=== PATIENT | female | born 1990 | race African-American/Black ===

== ENCOUNTER 2017-04-24 21:33 | Inpatient (IN) | payer OTHER ==
[~2017-04-24] VITALS: Ht 152.4 cm; Wt 63.5 kg
[~2017-04-24 21:33] MED LIST: ALBUTEROL INHALER
[2017-04-24] MEDS ORDERED: PREN-88 PO (22:04)
[2017-04-24] MEDS ORDERED: LACTATED RINGERS 1,000 ML IV ONE (22:15)
[2017-04-24] MEDS ORDERED: ACETAMINOPHEN 500MG TABLET PO NR (22:15)
[2017-04-24 22:50] LABS: CLARITY URINE TURBID (CLEAR); COLOR URINE DARK YELLOW (YELLOW); GLUCOSE URINE NEGATIVE (NEGATIVE); KETONES URINE NEGATIVE (NEGATIVE); LEUKOCYTE ESTERASE URINE 2+ (NEGATIVE); NITRITE URINE NEGATIVE (NEGATIVE); OCCULT BLOOD URINE 2+ (NEGATIVE); PH URINE 6.5 (4.5-8.0); PROTEIN URINE TRACE (NEGATIVE); SPECIFIC GRAVITY URINE 1.026 (1.005-1.030)
[2017-04-24] MEDS ORDERED: DEXT 5%/LR + PITOCIN 20UNITS/L 1,000 ML IV SCH (22:53)
[2017-04-24] MEDS ORDERED: LACTATED RINGERS 1,000 ML IV SCH (22:53)
[2017-04-24] MEDS ORDERED: METHYLERGONOVINE MALEATE 0.2 MG/ML IM PRN (23:00)
[2017-04-24] MEDS ORDERED: MISOPROSTOL 100MCG TABLET VG SCH (23:00)
[2017-04-24] MEDS ORDERED: CARBOPROST TROMETHAMINE 250 MCG/ML AMPUL IM PRN (23:00)
[2017-04-24] MEDS ORDERED: LIDOCAINE HCL 1% 20ML VIAL (Pyxis) INJ INFIL SCH (23:00)
[2017-04-24] MEDS ORDERED: BUTORPHANOL TARTRATE 2 MG/ML VIAL IV PRN (23:00)
[2017-04-24] MEDS ORDERED: PENICILLIN G POTASSIUM 5 MMU in DEXT 5% WATER 100 ML IV NR (23:00)
[2017-04-24] MEDS ORDERED: NALOXONE HCL 0.4 MG/ML 1ML VIAL IM PRN (23:00)
[2017-04-24 23:10] LABS: *AMPHETAMINES SCREEN URINE NEGATIVE (NEGATIVE); *BARBITURATES SCREEN URINE NEGATIVE (NEGATIVE); *BENZODIAZEPINES SCREEN URINE NEGATIVE (NEGATIVE); CANNABINOID URINE SCREEN NEGATIVE (NEGATIVE); METHADONE URINE SCREEN NEGATIVE (NEGATIVE); OPIATES URINE SCREEN NEGATIVE (NEGATIVE); PHENCYCLIDINE URINE SCREEN NEGATIVE (NEGATIVE)
[2017-04-24 23:50] LABS: *COCAINE SCREEN URINE PRESUMTIVE POSITIVE (NEGATIVE)
[2017-04-24 23:57] LABS: BASOPHILS % 0.4 % (0.0-2.0); EOSINOPHILS % 0.7 % (0.0-5.0); HEMATOCRIT. 39.3 % (36.0-48.0); HEMOGLOBIN. 12.8 g/dL (12.0-16.0); LYMPHOCYTES % 11.7 % (20.0-50.0); MEAN CORPUSCULAR HEMOGLOBIN 26.5 pg (28.0-32.0); MEAN CORPUSCULAR VOLUME 81.4 fL (81.0-99.0); MEAN PLATELET VOLUME 9.5 fl (7.4-10.4); MONOCYTES % 5.1 % (2.0-8.0); NEUTROPHILS % 82.1 % (40.0-76.0); PLATELET 266 x1000/uL (130-400); RED BLOOD CELL COUNT 4.83 mill/uL (4.2-5.4)
[2017-04-25 00:04] LABS: INR 0.9; PARTIAL THROMBOPLASTIN TIME 29.8 sec (23.4-31.0); PROTHROMBIN TIME 9.1 sec (9.4-11.6)
[2017-04-25] MEDS ORDERED: FENTANYL CITRATE/PF 50MCG/ML 2ML VIAL ONE ×3 (00:09→04:54)
[2017-04-25] MEDS ORDERED: BUPIVACAINE HCL/PF 0.25% (2.5MG/ML) 10ML ONE (00:11)
[2017-04-25] MEDS ORDERED: BUPIVACAINE HCL/NS/PF EPIDURAL 100 ML EP ONE (00:11)
[2017-04-25] MEDS ORDERED: DIPHENHYDRAMINE 50MG/ML VIAL IV PRN (01:00)
[2017-04-25] MEDS ORDERED: ONDANSETRON HCL 4MG/2ML VIAL IV PRN (01:00)
[2017-04-25] MEDS ORDERED: BUPIVACAINE HCL/NS/PF EPIDURAL 100 ML EP SCH (01:00)
[2017-04-25] MEDS ORDERED: PENICILLIN G POTASSIUM 2.5 MMU in DEXTROSE 5% WATER 50 ML IV SCH (03:00)
[2017-04-25] MEDS ORDERED: BETAMETHASONE ACET/BETAMET 30 MG/5 ML VIAL IM SCH (03:15)
[2017-04-25] MEDS ORDERED: CEFAZOLIN SODIUM 1000MG/VIAL ONE (04:44)
[2017-04-25] MEDS ORDERED: SODIUM BICARBONATE 4% (2.4MEQ) 5ML VIAL IV ONE (04:44)
[2017-04-25] MEDS ORDERED: OXYTOCIN 10 UNITS/ML 1ML ONE (04:45)
[2017-04-25] MEDS ORDERED: MORPHINE SULFATE/PF 1MG/ML 10ML AMP ONE (04:54)
[2017-04-25] MEDS ORDERED: MIDAZOLAM HCL 2 MG/2 ML VIAL ONE (04:54)
[2017-04-25] MEDS ORDERED: AZITHROMYCIN 500 MG in DEXT 5% WATER 250 ML IV SCH (05:00)
[2017-04-25] MEDS ORDERED: PROPOFOL 200MG/20ML VIAL IV ONE (05:36)
[2017-04-25] MEDS ORDERED: LIDOCAINE HCL 1% 20ML VIAL (Pyxis) INJ ONE (05:36)
[2017-04-25] MEDS ORDERED: DEXT 5%/LR + PITOCIN 20UNITS/L 1,000 ML IV SCH (05:39)
[2017-04-25] MEDS ORDERED: BISACODYL 10MG SUPP PR PRN (05:45)
[2017-04-25] MEDS ORDERED: LANOLIN OINT 0.25 GM TUBE TOP PRN (05:45)
[2017-04-25] MEDS ORDERED: GLYCERIN/WITCH HAZEL LEAF MEDICATED PAD TOP PRN (05:45)
[2017-04-25] MEDS ORDERED: ACETAMINOPHEN 500MG TABLET PO PRN (05:45)
[2017-04-25] MEDS ORDERED: METHYLERGONOVINE MALEATE 0.2 MG/ML IM PRN ×2 (05:45→10:00)
[2017-04-25] MEDS ORDERED: DIPHENHYDRAMINE 25MG CAPSULE PO PRN (05:45)
[2017-04-25] MEDS ORDERED: RHO(D) IMMUNE GLOBULIN 300 MCG/SYR IM PRN (05:45)
[2017-04-25] MEDS ORDERED: IBUPROFEN 400MG TABLET PO PRN (05:45)
[2017-04-25 08:00] VITALS: BP 129/75
[2017-04-25 08:24] LABS: HEPATITIS B SURFACE ANTIGEN NEGATIVE; RUBELLA IGG 38.5 IU/mL (4.99-10)
[2017-04-25 09:00] VITALS: BP 113/63
[2017-04-25] MEDS ORDERED: METHYLERGONOVINE MALEATE 0.2MG TABLET PO SCH (09:00)
[2017-04-25] MEDS: MAGNESIUM/ALUMINUM HYDROXIDE/SIMETHICONE 30ML UDC PO SCH ×2 (13:01→21:22)
[2017-04-25] MEDS: PRENATAL VIT/FE FUMARATE/FA TABLET PO SCH (13:01)
[2017-04-25] MEDS: SIMETHICONE 80MG TABLET CHEW PO SCH ×2 (13:01→21:23)
[2017-04-25 15:33] VITALS: BP 114/63
[2017-04-25 20:00] VITALS: BP 108/78
[2017-04-25 21:25] VITALS: BP 109/68
[2017-04-25] MEDS: DOCUSATE SODIUM 100MG CAPSULE PO SCH (21:27)
[2017-04-25] MEDS: IBUPROFEN 800MG TABLET PO PRN (21:29)
[2017-04-26 07:25] VITALS: BP 107/54
[2017-04-26 07:25] LABS: BASOPHILS % 0.2 % (0.0-2.0); EOSINOPHILS % 0.2 % (0.0-5.0); HEMATOCRIT. 31.5 % (36.0-48.0); HEMOGLOBIN. 10.2 g/dL (12.0-16.0); LYMPHOCYTES % 12.8 % (20.0-50.0); MEAN CORPUSCULAR HEMOGLOBIN 26.5 pg (28.0-32.0); MEAN CORPUSCULAR VOLUME 81.4 fL (81.0-99.0); MEAN PLATELET VOLUME 9.7 fl (7.4-10.4); MONOCYTES % 6.7 % (2.0-8.0); NEUTROPHILS % 80.1 % (40.0-76.0); PLATELET 225 x1000/uL (130-400); RED BLOOD CELL COUNT 3.87 mill/uL (4.2-5.4); RED CELL DISTRIBUTION WIDTH 17.2 % (11.6-14.6)
[2017-04-26] MEDS: PRENATAL VIT/FE FUMARATE/FA TABLET PO SCH (08:14)
[2017-04-26] MEDS: IBUPROFEN 800MG TABLET PO PRN ×2 (08:14→19:16)
[2017-04-26] MEDS: MAGNESIUM/ALUMINUM HYDROXIDE/SIMETHICONE 30ML UDC PO SCH ×4 (08:15→22:22)
[2017-04-26] MEDS: SIMETHICONE 80MG TABLET CHEW PO SCH ×4 (08:15→22:22)
[2017-04-26] MEDS: FERROUS SULFATE 325MG TABLET PO SCH ×2 (12:30→18:02)
[2017-04-26 16:09] VITALS: BP 101/58
[2017-04-26 19:10] VITALS: BP 115/68
[2017-04-26 22:20] VITALS: BP 113/70
[2017-04-26] MEDS: DOCUSATE SODIUM 100MG CAPSULE PO SCH (22:23)
[2017-04-27 07:48] VITALS: BP 99/50
[2017-04-27] MEDS: MAGNESIUM/ALUMINUM HYDROXIDE/SIMETHICONE 30ML UDC PO SCH (07:50)
[2017-04-27] MEDS: FERROUS SULFATE 325MG TABLET PO SCH (07:55)
[2017-04-27] MEDS: SIMETHICONE 80MG TABLET CHEW PO SCH (07:55)
[2017-04-27] MEDS: PRENATAL VIT/FE FUMARATE/FA TABLET PO SCH (07:55)
[2017-04-27] MEDS: IBUPROFEN 800MG TABLET PO PRN (07:56)
[2017-05-03 17:07] LABS: COCAINE CONFIRMATION URINE Positive (.)
== END 2017-04-27 12:40 | disposition home or self-care (01) | DRG 560 ==
LOC: L&D 21:33 → 7EST PP/OB 04-25 08:00
PROVIDERS: ADMIT Obstetrics & Gynecology; ATTEND Obstetrics & Gynecology
PROC: 3E0S3CZ (ICD-10-PCS; 2017-04-25)
PROC: 00HU33Z Insertion of Infusion Device into Spinal Canal, Percutaneous Approach (ICD-10-PCS; 2017-04-25)
PROC: 10E0XZZ Delivery of Products of Conception, External Approach (ICD-10-PCS; principal; 2017-04-25 06:00)
DX: O42.913 Preterm premature rupture of membranes, unspecified as to length of time between rupture and onset of labor, third trimester (principal); O60.14X0 Preterm labor third trimester with preterm delivery third trimester, not applicable or unspecified; O69.1XX0 Labor and delivery complicated by cord around neck, with compression, not applicable or unspecified; F14.10 Cocaine abuse, uncomplicated; O99.324 Drug use complicating childbirth; O99.03 Anemia complicating the puerperium; D64.9 Anemia, unspecified; Z3A.31 31 weeks gestation of pregnancy; Z37.0 Single live birth
CPT/HCPCS: 36415; 76805; 80051; 80305; 80353; 81001; 85025; 85610; 85730; 86592; 86703; 86762; 86850; 86900; 87340; 88307; 99281; G0378; J0456; J0595; J0690; J0702; J1200; J2250; J2274; J2540; J2590; J2704; J3010; J3490; J7030; J7060; J7120; A4315

== ENCOUNTER 2017-09-21 14:19 | Emergency (ER) | payer MEDICAID ==
[~2017-09-21] VITALS: Ht 165.1 cm; Wt 60.0 kg
[~2017-09-21 14:19] MED LIST changes: +PREN-88 PO
[2017-09-21 14:24] VITALS: BP 100/59
== END 2017-09-21 18:00 | disposition left against medical advice (07) ==
LOC: ER 14:19
DX: R51 Headache (principal); Z53.21 Procedure and treatment not carried out due to patient leaving prior to being seen by health care provider

== ENCOUNTER 2019-03-17 12:51 | Emergency (ER) | payer MEDICAID ==
[~2019-03-17] VITALS: Ht 157.5 cm; Wt 55.0 kg
[2019-03-17 12:53] VITALS: BP 98/56
== END 2019-03-17 16:35 | disposition left against medical advice (07) ==
LOC: ER 12:51
DX: R53.1 Weakness (principal); Z53.21 Procedure and treatment not carried out due to patient leaving prior to being seen by health care provider

== ENCOUNTER 2021-05-28 17:15 | Emergency (ER) | payer MEDICAID ==
[~2021-05-28] VITALS: Ht 162.6 cm; Wt 50.0 kg
[2021-05-28] MEDS ORDERED: LIDOCAINE HCL 1% 20ML VIAL (Pyxis) INJ INFIL ONE (19:30)
[2021-05-28] MEDS ORDERED: IBUP-2029 MT (22:56)
[2021-05-29 01:30] VITALS: BP 125/67
== END 2021-05-29 01:31 | disposition home or self-care (01) ==
LOC: ER 17:15
DX: S81.811A Laceration without foreign body, right lower leg, initial encounter (principal); F14.10 Cocaine abuse, uncomplicated; Y04.0XXA Assault by unarmed brawl or fight, initial encounter; Y93.89 Activity, other specified; Y92.89 Other specified places as the place of occurrence of the external cause; Y99.8 Other external cause status
CPT/HCPCS: 12002; 36415; 80320; 99283; J3490; Z7610; G0480

== ENCOUNTER 2023-08-20 00:15 | Emergency (ER) | payer OTHER ==
[~2023-08-20] VITALS: Ht 167.6 cm; Wt 62.0 kg
[~2023-08-20 00:15] MED LIST changes: +DOCU-138 MT; +FERR325T6 MT; +IBUP-2029 MT; +LEVO-65 MT
[2023-08-20 00:25] VITALS: BP 128/63; PULSE 94; RESP 18; TEMP 98.9; O2SAT 98
[2023-08-20] MEDS ORDERED: AMPICILLIN SOD/SULBACTAM NA 3 G in SODIUM CHLORIDE 0.9% 100 ML IV SCH (00:30)
== END 2023-08-20 01:01 | disposition left against medical advice (07) ==
LOC: ER 00:15
DX: R22.0 Localized swelling, mass and lump, head (principal)
CPT/HCPCS: 99281; J0295; J7050

== ENCOUNTER 2024-05-31 22:56 | Emergency (ER) | payer SELFPAY ==
[~2024-05-31] VITALS: Ht 167.6 cm; Wt 50.0 kg
[~2024-05-31 22:56] MED LIST changes: -ALBUTEROL INHALER; -DOCU-138 MT; -IBUP-2029 MT; -LEVO-65 MT; -PREN-88 PO
[2024-05-31 23:00] VITALS: BP 111/81; PULSE 120; TEMP 98; O2SAT 95
[2024-05-31 23:48] LABS: BASOPHILS % 1.4 % (0.0-2.0); EOSINOPHILS % 2.6 % (0.0-5.0); HEMATOCRIT. 34.5 % (36.0-48.0); HEMOGLOBIN. 10.9 g/dL (12.0-16.0); LYMPHOCYTES % 33.4 % (20.0-50.0); MEAN CORPUSCULAR HEMOGLOBIN 27.8 pg (28.0-32.0); MEAN CORPUSCULAR HGB CONC 31.6 g/dL (31.0-37.0); MEAN CORPUSCULAR VOLUME 88.1 fL (81.0-99.0); MEAN PLATELET VOLUME 8.8 fl (7.4-10.4); MONOCYTES % 7.7 % (2.0-8.0); NEUTROPHILS % 54.9 % (40.0-76.0); PLATELET 318 x1000/uL (130-400); RED BLOOD CELL COUNT 3.92 mill/uL (4.2-5.4); RED CELL DISTRIBUTION WIDTH 16.6 % (11.6-14.6); WHITE BLOOD COUNT 5.6 x1000/uL (4.5-11.0)
[2024-06-01 00:02] LABS: CHLORIDE 107 mEq/L (98-107); POTASSIUM 3.2 mEq/L (3.5-5.1); SODIUM 140 mEq/L (136-145)
[2024-06-01 00:03] LABS: CARBON DIOXIDE 27 mEq/L (21-32)
[2024-06-01 00:08] LABS: CREATININE 0.7 mg/dL (0.6-1.0); GLUCOSE 137 mg/dL (70-105); HCG SCREEN NEGATIVE; UREA NITROGEN BLOOD 10 mg/dL (9-23)
[2024-06-01] MEDS ORDERED: ACETAMINOPHEN 325MG TABLET PO PRN (01:00)
[2024-06-01] MEDS: TRANEXAMIC ACID 1,000MG/10ML IV ONE (02:30)
[2024-06-01] MEDS ORDERED: ACET-2708 PO (03:07)
[2024-06-01] MEDS ORDERED: MEDR10TA11 MT (03:07)
[2024-06-01] MEDS: ONDANSETRON HCL 4MG/2ML INJ IV NR (03:19)
[2024-06-01] MEDS: POTASSIUM CHLORIDE 20MEQ TABLET SR PO NR (03:30)
[2024-06-01 04:30] VITALS: RESP 17
== END 2024-06-01 06:42 | disposition home or self-care (01) ==
LOC: ER 23:14
DX: N93.9 Abnormal uterine and vaginal bleeding, unspecified (principal); N92.0 Excessive and frequent menstruation with regular cycle; D64.9 Anemia, unspecified; F14.10 Cocaine abuse, uncomplicated; Z79.899 Other long term (current) drug therapy
CPT/HCPCS: 36415; 76830; 76856; 80048; 84703; 85025; 86850; 86900; 99284